=== PATIENT | female | born 1955 | race African-American/Black ===

== ENCOUNTER 2018-07-26 09:50 | Emergency (ER) | payer MEDICARE, OTHER ==
[~2018-07-26] VITALS: Ht 172.7 cm; Wt 113.4 kg
[2018-07-26] MEDS ORDERED: HYDROcodone-ACET 10/325MG TAB PO ONE (10:15)
[2018-07-26 10:38] LABS: Basophils # (auto) 0 uL; Hemoglobin 10.6 g/dL (12.2-16.2); Red Cell Distribution Width 14.8 % (11.8-14.3)
[2018-07-26 10:42] LABS: Basophils % (auto) 0.4 % (0.0-2.0); Eosinophils # (auto) 0.5 uL; Eosinophils % (auto) 4.5 % (0.0-7.0); Hematocrit 33.9 % (36.0-46.0); Lymphocytes # (auto) 1.8 uL; Lymphocytes % (auto) 17.7 % (10.0-50.0); Mean Corpuscular Hemoglobin 24.6 pg (28.0-32.0); Mean Corpuscular Hgb Conc. 31.3 g/dL (32.0-36.0); Mean Corpuscular Volume 78.6 fL (80.0-100.0); Monocytes # (auto) 0.9 uL; Monocytes % (auto) 9.2 % (0.0-12.0); Neutrophils # (auto) 6.7 uL; Neutrophils % (auto) 68.2 % (37.0-80.0); Platelet Count (auto) 267 10^3/uL (140-450); Red Blood Cells 4.31 10^6/uL (4.0-5.20); White Blood Cell 9.9 10^3/uL (4.4-10.8)
[2018-07-26 11:01] LABS: Albumin 3.3 g/dL (3.4-5.0); Anion Gap 9 (5-15); Blood Urea Nitrogen 37 mg/dL (7-18); Calcium 8.4 mg/dL (8.5-10.1); Carbon Dioxide 28 mmol/L (21-32); Chloride 102 mmol/L (98-107); Glucose 81 mg/dL (74-106); Sodium 139 mmol/L (136-145)
[2018-07-26 11:06] LABS: Alanine Aminotransferase 12 U/L (13-56); Alkaline Phosphatase 140 U/L (45-117); Aspartate Aminotransferase 13 U/L (15-37); BUN/Creatinine Ratio 3.6; Bilirubin, Total 0.2 mg/dL (0.2-1.0); GFR African American 5 mL/min; GFR Non-African American 4 mL/min; Total Protein 7.5 g/dL (6.4-8.2)
[2018-07-26] MEDS ORDERED: HYDROmorphone HCL 2 MG TAB PO ONE (12:30)
[2018-07-26 13:13] VITALS: BP 134/68
== END 2018-07-26 13:20 | disposition home or self-care (01) ==
LOC: EDBD 09:50 → ER 09:54
DX: S76.011A Strain of muscle, fascia and tendon of right hip, initial encounter (principal); I12.0 Hypertensive chronic kidney disease with stage 5 chronic kidney disease or end stage renal disease; N18.6 End stage renal disease; Z99.2 Dependence on renal dialysis; W18.39XA Other fall on same level, initial encounter; Y93.89 Activity, other specified; Y92.009 Unspecified place in unspecified non-institutional (private) residence as the place of occurrence of the external cause; Y99.8 Other external cause status
CPT/HCPCS: 36415; 71045; 72192; 80053; 84484; 85025

== ENCOUNTER → 2020-01-19 | Emergency (ER) | payer MEDICARE ==
[~2020-01-19] VITALS: Ht 167.6 cm; Wt 81.6 kg
[~2020-01-19] MED LIST: CALCIUM CHLOR(10%) 100MG/ML 10ML SYRINGE IV ONE; EPINEPHrine HCL 1 MG/10 ML SYRG IV ONE; SODIUM BICARBONATE 8.4 % INJ 50ML VIAL IV ONE; SODIUM BICARBONATE 8.4% INJ 50ML SYRINGE IV ONE
[2020-01-19 20:09] VITALS: BP 0/0
--- NOTE | 2020-01-23 11:46 | NUR ---
spoke with daughter Katarina Perera [phone] she verified that her mother was still here, states she is headed to [facility] to make arrangements for cremation and will call me back when she is done
--- NOTE | 2020-01-23 17:06 | NUR ---
[facility] Made a call for an update at at this time they are closed and no after hours service number was able to be located
--- NOTE | 2020-01-23 17:08 | NUR ---
call placed to daughter Sarahi Perera at [phone] she states that she was unable to make arrangements today but was given an appointment to meet with the home at 0900 on 01-24-2020. She will follow up with us after that meeting
== END | disposition home or self-care (01) ==
LOC: EDUNIT# 19:11 → ER 19:12 → EDBD 19:12
DX: I46.9 Cardiac arrest, cause unspecified (principal); R06.89 Other abnormalities of breathing; I12.0 Hypertensive chronic kidney disease with stage 5 chronic kidney disease or end stage renal disease; N18.6 End stage renal disease; Z86.73 Personal history of transient ischemic attack (TIA), and cerebral infarction without residual deficits
CPT/HCPCS: 31500; 92950; 99291; J0171